=== PATIENT | female | born 1945 | race Caucasian/White ===

== ENCOUNTER → 2021-06-29 | Outpatient (CLI) | payer MEDICARE ==
[~2021-06-29] MED LIST: CALCIUM 600 +1 EAC2 PO; CARDIZEM CD180 MG PO; ESTER-C 500 MG1 EACH PO; PERFECT IRON25 MG PO; SYNTHROID75 MCG PO; TAMBOCOR 100 M100 MG PO; THERAGRAN M TAB1 EA PO; VITAMIN D32000 UNI1 PO; XARELTO10 MG PO
== END ==
LOC: HEART 5 12:54
DX: I08.3 Combined rheumatic disorders of mitral, aortic and tricuspid valves (principal)
CPT/HCPCS: 93306